=== PATIENT | female | born 1990 | race Caucasian/White ===

== ENCOUNTER 2022-11-22 09:28 | Outpatient (OUT) | payer OTHER, SELFPAY ==
--- NOTE | 2022-11-22 09:49 | US_ITS ---
Patient: CARMELINA CODY Exam Date: 11/22/2022 : 1990 Gender:F Ordering : Non-Staff Physician Admission #: [id number] Family : WALT COLVIN Order #: [id number] CLICK HERE TO VIEW EXAM PROCEDURE: US BREAST BI COMPLETE COMPARISON: None. INDICATIONS: Preoperative Clearance Z01.818 FINDINGS: Bilateral whole breast ultrasound Right breast: 4 mm area of anechoic echogenicity 1 o'clock. 4 mm area of anechoic echogenicity 6 o'clock. Both are consistent with simple cysts. 2.6 x 0.5 x 1.3 cm oval area of hypoechogenicity 9 o'clock. Well-circumscribed margins but otherwise indeterminate Left breast: 10 mm area of anechoic echogenicity at 12 o'clock, simple cyst CONCLUSION: 2.6 cm oval area of indeterminate hypoechogenicity 9 o'clock right breast. Mammogram follow-up recommended Dictated by: Francisco Terrell MD on 11/22/2022 at 15:13 Approved by: Francisco Terrell MD on 11/22/2022 at 15:16
== END 2022-11-22 09:29 | disposition home or self-care (01) ==
LOC: US 09:28
DX: Z01.818 Encounter for other preprocedural examination (principal); Z41.1 Encounter for cosmetic surgery; R92.8 Other abnormal and inconclusive findings on diagnostic imaging of breast
CPT/HCPCS: 76641